=== PATIENT | male | born 1970 | race Caucasian/White ===

== ENCOUNTER → 2017-04-04 | Outpatient (CLI) | payer OTHER ==
[2017-04-04 10:47] LABS: CH 31.3; CHCM 34.6; HCT 54.6 % (39.0-53.0); HDW 2.76; HGB 18.5 gm/dL (13.0-17.5); MCH 30.8 pg (25.0-35.0); MCHC 33.8 g/dL (31.0-37.0); RDW 13.2 % (11.5-15.5); WBC 5.5 k/uL (3.8-10.6)
[2017-04-04 12:30] LABS: ALT 40 U/L (21-72); AST 28 U/L (17-59); Anion Gap 8 mmol/L; Blood Urea Nitrogen 24 mg/dL (9-20); Carbon Dioxide 24 mmol/L (22-30); Chloride 106 mmol/L (98-107); Cholesterol 200 mg/dL (<200); HDL Cholesterol 57 mg/dL (40-60); Non-African American GFR(MDRD) >60 (>60 ml/min/1.73 sqM); Potassium 4.4 mmol/L (3.5-5.1); Sodium 138 mmol/L (137-145); Triglycerides 73 mg/dL (<150)
== END | disposition home or self-care (01) ==
LOC: LABWHC1 09:58
PROVIDERS: ATTEND Internal Medicine Cardiovascular Disease
DX: E78.2 Mixed hyperlipidemia (principal)
CPT/HCPCS: 36415; 80051; 80061; 82565; 84450; 84460; 84520; 85027

== ENCOUNTER → 2019-04-10 | Outpatient (CLI) | payer OTHER ==
[2019-04-10 11:09] LABS: Basophils # (A) 0.1 k/uL (0-0.2); Basophils % (A) 1 %; Eosinophils # (A) 0.2 k/uL (0-0.7); Eosinophils % (A) 2 %; HGB 17.5 gm/dL (13.0-17.5); Lymphocytes # (A) 2.3 k/uL (1.0-4.8); Lymphocytes % (A) 34 %; MCH 29.3 pg (25.0-35.0); MCHC 33.6 g/dL (31.0-37.0); MCV 87.3 fL (80.0-100.0); Mean Platelet Volume 8.4; Monocytes # (A) 0.4 k/uL (0-1.0); Monocytes % (A) 6 %; Neutrophils # (A) 3.6 k/uL (1.3-7.7); Neutrophils % (A) 55 %; Platelet Count 173 k/uL (150-450); RBC 5.96 m/uL (4.30-5.90); RDW 14.2 % (11.5-15.5); WBC 6.6 k/uL (3.8-10.6)
[2019-04-10 16:30] LABS: ALT 44 U/L (10-49); AST 29 U/L (14-35)
== END | disposition home or self-care (01) ==
LOC: LABWHC1 10:20
PROVIDERS: ATTEND Urology
DX: L60.9 Nail disorder, unspecified (principal); D17.0 Benign lipomatous neoplasm of skin and subcutaneous tissue of head, face and neck; L91.8 Other hypertrophic disorders of the skin; L53.8 Other specified erythematous conditions; H53.40 Unspecified visual field defects; N20.0 Calculus of kidney
CPT/HCPCS: 36415; 84153; 84450; 84460; 85025

== ENCOUNTER 2020-12-22 10:00 | Day surgery (SDC) | payer OTHER ==
[2020-12-20 15:31] VITALS: BMI 42.8
[~2020-12-22 10:00] MED LIST: LACTATED RINGERS 1,000 ML IV SCH
[2020-12-22 10:41] VITALS: TEMP 98.2
[2020-12-22] MEDS ORDERED: LIDOCAINE 1% (10MG/ML) FOR IV START INTRADERMA ONE (10:50)
[2020-12-22] MEDS ORDERED: PROPOFOL 10 MG/ML 20 ML VIAL IV ONE (11:44)
--- NOTE | 2020-12-22 11:57 | P.PCN ---
Date of Procedure: 12/22/20 Procedure(s) Performed: BRIEF HISTORY: Patient is a 50-year-old pleasant male scheduled for an elective colonoscopy as a part of screening for colorectal neoplasia. PROCEDURE PERFORMED: Colonoscopy snare polypectomy. PREOPERATIVE DIAGNOSIS: Screening for colon cancer. IV sedation per Anesthesia. PROCEDURE: After informed consent was obtained, the patient, was brought into the endoscopy unit. IV sedation was administered by Anesthesia under continuous monitoring. Digital rectal examination was normal. Initially the Olympus CF-160 flexible video colonoscope was then inserted in the rectum, gradually advanced into the cecum without any difficulty. Careful examination was performed as the scope was gradually being withdrawn. Ileocecal valve and the appendiceal orifice were visualized and appeared normal. Prep was excellent. Mucosa of the cecum, ascending colon, appeared normal. In the hepatic flexure there was a 7 mm sessile polyp removed by snare polypectomy. In the transverse colon there was a 1 cm polyp removed by snare polypectomy. Rest of the transverse colon, descending colon, sigmoid colon, and rectum appeared normal. Retroflexion was performed in the rectum and no lesions were seen. The patient tolerated the procedure well. IMPRESSION: 7 mm hepatic flexure polyp status post polypectomy 1 cm transverse colon polyp status post polypectomy RECOMMENDATIONS: Findings of this examination were discussed with the patient as well as his family. He was advised to follow with the biopsy results. If the biopsy shows an adenoma he can have a repeat colonoscopy in 3 years.
[2020-12-22 12:16] VITALS: BP 119/79; PULSE 58; RESP 18
== END 2020-12-22 12:35 | disposition home or self-care (01) ==
LOC: ORWHC2ENDO 10:00
PROVIDERS: ATTEND Internal Medicine Gastroenterology
DX: Z12.11 Encounter for screening for malignant neoplasm of colon (principal); K63.5 Polyp of colon; I10 Essential (primary) hypertension; G47.33 Obstructive sleep apnea (adult) (pediatric); Z87.442 Personal history of urinary calculi; Z79.899 Other long term (current) drug therapy
CPT/HCPCS: 88305; 45385; J2704

== ENCOUNTER 2021-11-09 05:02 | Emergency (ER) | payer OTHER ==
[2021-11-09 05:08] VITALS: BP 172/81; PULSE 99; RESP 18; TEMP 99.4
[2021-11-09] MEDS ORDERED: SULFAMETHOX-TMP 800-160MG 1 EACH TAB PO STA ×2 (05:25→05:35)
[2021-11-09] MEDS ORDERED: CEPHALEXIN 500 MG CAP PO STA (05:25)
--- NOTE | 2021-11-09 05:27 | ED ---
Skin/Abscess/FB HPI - General Chief complaint: Skin/Abscess/Foreign Body Stated complaint: Right ankle swelling Time Seen by Provider: 11/09/21 05:10 Source: patient, RN notes reviewed, old records reviewed Mode of arrival: ambulatory Limitations: no limitations - History of Present Illness Initial comments: This is a 51-year-old male to the ER for evaluation patient since today for evaluation and right ankle pain swelling and redness significant oneness and swelling of the right lower extremity swelling up the leg. Patient admits to fevers and chills. No other complaints no prior history of same MD complaint: rash, discoloration -: hour(s) Location: generalized, RLE, R foot Severity: moderate Severity scale (1-10): 5 Quality: aching Consistency: constant Improves with: none Worsens with: none Associated symptoms: fever, chills Treatments Prior to Arrival: none - Related Data Home Medications Medication Instructions Recorded Confirmed Metoprolol Succinate (ER) [Toprol 50 mg PO DAILY 12/20/20 12/20/20 Xl] lisinopriL 20 mg PO DAILY 12/20/20 12/22/20 Previous Rx's Medication Instructions Recorded Cephalexin [Keflex] 500 mg PO Q6HR #40 cap 11/09/21 Sulfamethox-Tmp 800-160Mg [Bactrim 2 tab PO BID #40 tab 11/09/21 DS 800-160 mg] Allergies Allergy/AdvReac Type Severity Reaction Status Date / Time No Known Allergies Allergy Verified 11/09/21 05:08 Review of Systems ROS Statement: Those systems with pertinent positive or pertinent negative responses have been documented in the HPI. ROS Other: All systems not noted in ROS Statement are negative. Past Medical History Past Medical History: Hypertension, Sleep Apnea/CPAP/BIPAP History of Any Multi-Drug Resistant Organisms: None Reported Additional Past Surgical History / Comment(s): hemmoroid laser sx, colonoscopy, kidney stone removed Past Anesthesia/Blood Transfusion Reactions: No Reported Reaction Past Psychological History: No Psychological Hx Reported Smoking Status: Never smoker Past Alcohol Use History: None Reported Past Drug Use History: None Reported - Past Family History Mother Family Medical History: No Reported History General Exam Limitations: no limitations General appearance: alert, in no apparent distress Head exam: Present: atraumatic, normocephalic, normal inspection Eye exam: Present: normal appearance, PERRL, EOMI. Absent: scleral icterus, conjunctival injection, periorbital swelling ENT exam: Present: normal exam, mucous membranes moist Neck exam: Present: normal inspection. Absent: tenderness, meningismus, lymphadenopathy Respiratory exam: Present: normal lung sounds bilaterally. Absent: respiratory distress, wheezes, rales, rhonchi, stridor Cardiovascular Exam: Present: regular rate, normal rhythm, normal heart sounds. Absent: systolic murmur, diastolic murmur, rubs, gallop, clicks GI/Abdominal exam: Present: soft, normal bowel sounds. Absent: distended, tenderness, guarding, rebound, rigid Extremities exam: Present: normal inspection, full ROM, normal capillary refill, other (Medical record is reviewed). Absent: tenderness, pedal edema, joint swelling, calf tenderness Back exam: Present: normal inspection Neurological exam: Present: alert, oriented X3, CN II-XII intact Psychiatric exam: Present: normal affect, normal mood Skin exam: Present: warm, dry, intact, normal color. Absent: rash Course Vital Signs 11/09/21 05:05 Temperature 99.4 F Pulse Rate 99 Respiratory 18 Rate Blood Pressure 172/81 O2 Sat by Pulse 96 Oximetry - Reevaluation(s) Reevaluation #1: 11/09/21 07:15 Attic record is reviewed Reevaluation #2: 11/09/21 07:16 Patient symptoms are improved Reevaluation #3: 11/09/21 07:16 Patient like to do outpatient treatment with antibiotics, will return if symptoms worsen Medical Decision Making - Medical Decision Making 48 female DF for evaluation patient Dese for evaluation of significant right lower extremity edema cellulitis of the ankle and leg. Patient be placed on antibiotic treatment and return if symptoms do not improve Disposition Clinical Impression: Cellulitis of right leg Disposition: HOME SELF-CARE Condition: Good Instructions (If sedation given, give patient instructions): Cellulitis (ED) Prescriptions: Sulfamethox-Tmp 800-160Mg [Bactrim DS 800-160 mg] 2 tab PO BID #40 tab Cephalexin [Keflex] 500 mg PO Q6HR #40 cap Is patient prescribed a controlled substance at d/c from ED?: No Referrals: None,Stated [Primary Care Provider] - 1-2 days
== END 2021-11-09 05:55 | disposition home or self-care (01) ==
LOC: EC 05:02
DX: L03.115 Cellulitis of right lower limb (principal); I10 Essential (primary) hypertension; Z79.899 Other long term (current) drug therapy
CPT/HCPCS: 99283

== ENCOUNTER 2021-11-12 13:10 | Emergency (ER) | payer OTHER ==
[2021-11-12 14:19] VITALS: BP 160/67; PULSE 73; RESP 18; TEMP 98.4
--- NOTE | 2021-11-12 14:57 | ED ---
Recheck HPI - General Chief Complaint: Recheck/Abnormal Lab/Rx Stated Complaint: recheck right leg cellulitis; ER visit 11/09/21 Time Seen by Provider: 11/12/21 14:22 Source: patient, RN notes reviewed Mode of arrival: ambulatory Limitations: physical limitation - History of Present Illness Initial Comments: Patient is a 51-year-old male that presents to the emergency department to reevaluate his right lower leg cellulitis per patient notes he is taking 3 days antibiotics and it has greatly improved thus far. Patient was told to come to the ER by family to get reevaluated. Patient notes that he is able to walk on a pain is significantly decreased if he is noticing improvement. Patient does want to be sick. He denied any other issues or complaints. He was otherwise well-appearing. He denied chest pain shortness of breath headache nausea vomiting diarrhea constipation fever fatigue chills. - Related Data Home Medications Medication Instructions Recorded Confirmed Metoprolol Succinate (ER) [Toprol 50 mg PO DAILY 12/20/20 12/20/20 Xl] lisinopriL 20 mg PO DAILY 12/20/20 12/22/20 Previous Rx's Medication Instructions Recorded Cephalexin [Keflex] 500 mg PO Q6HR #40 cap 11/09/21 Sulfamethox-Tmp 800-160Mg [Bactrim 2 tab PO BID #40 tab 11/09/21 DS 800-160 mg] Allergies Allergy/AdvReac Type Severity Reaction Status Date / Time No Known Allergies Allergy Verified 11/12/21 14:20 Review of Systems ROS Statement: Those systems with pertinent positive or pertinent negative responses have been documented in the HPI. ROS Other: All systems not noted in ROS Statement are negative. Past Medical History Past Medical History: Hypertension, Sleep Apnea/CPAP/BIPAP History of Any Multi-Drug Resistant Organisms: None Reported Additional Past Surgical History / Comment(s): hemmoroid laser sx, colonoscopy, kidney stone removed Past Anesthesia/Blood Transfusion Reactions: No Reported Reaction Past Psychological History: No Psychological Hx Reported Smoking Status: Never smoker Past Alcohol Use History: None Reported Past Drug Use History: None Reported - Past Family History Mother Family Medical History: No Reported History General Exam Limitations: physical limitation General appearance: alert, in no apparent distress Head exam: Present: atraumatic, normocephalic, normal inspection Eye exam: Present: normal appearance, PERRL, EOMI. Absent: scleral icterus, co njunctival injection, periorbital swelling ENT exam: Present: normal exam, mucous membranes moist Neck exam: Present: normal inspection Respiratory exam: Present: normal lung sounds bilaterally. Absent: respiratory distress, wheezes, rales, rhonchi, stridor Cardiovascular Exam: Present: regular rate, normal rhythm, normal heart sounds. Absent: systolic murmur, diastolic murmur, rubs, gallop, clicks GI/Abdominal exam: Present: soft, normal bowel sounds. Absent: distended, tenderness, guarding, rebound, rigid Extremities exam: Present: normal inspection, full ROM, normal capillary refill. Absent: tenderness, pedal edema, joint swelling, calf tenderness Neurological exam: Present: alert, oriented X3 Psychiatric exam: Present: normal affect, normal mood Skin exam: Present: warm, dry, intact, normal color, erythema (Right lower leg consistent with cellulitis, not warm to the touch.). Absent: rash Course Vital Signs 11/12/21 14:12 Temperature 98.4 F Pulse Rate 73 Respiratory 18 Rate Blood Pressure 160/67 O2 Sat by Pulse 96 Oximetry Medical Decision Making - Medical Decision Making 51-year-old male presenting for reevaluation of his right lower leg cellulitis. Right lower leg upon physical exam appears to be doing well, is cortical the touch good pulses. Patient notes he is able to ambulate only after several days of antibiotics and notices improvement. Patient was instructed to continue antibiotics. Patient requesting work note. Case discussed with Dr. Williamson. Disposition Clinical Impression: Cellulitis of right leg Disposition: HOME SELF-CARE Condition: Stable Instructions (If sedation given, give patient instructions): Cellulitis (ED) Additional Instructions: Please return to the Emergency Department if symptoms worsen or any other concerns. Follow-up with primary care 1-2 days. Continue antibiotics until complete. Is patient prescribed a controlled substance at d/c from ED?: No Referrals: None,Stated [Primary Care Provider] - 1-2 days Time of Disposition: 14:57
== END 2021-11-12 15:18 | disposition home or self-care (01) ==
LOC: EC 13:10
DX: L03.115 Cellulitis of right lower limb (principal); I10 Essential (primary) hypertension; Z87.442 Personal history of urinary calculi
CPT/HCPCS: 99283

== ENCOUNTER → 2021-11-16 | Outpatient (CLI) | payer OTHER ==
--- NOTE | 2021-11-16 11:57 | US ---
EXAMINATION TYPE: US venous doppler duplex LE RT DATE OF EXAM: 11/16/2021 11:38 AM COMPARISON: NONE CLINICAL HISTORY: 51-year-old male M79.661 PAIN IN RT LOWER LEG, R60.0 EDEMA. Cellulitis right lower extremity SIDE PERFORMED: Right TECHNIQUE: The lower extremity deep venous system is examined utilizing real time linear array sonog julio with graded compression, doppler sonography and color-flow sonography. FINDINGS: VESSELS IMAGED: Common Femoral Vein Deep Femoral Vein Greater Saphenous Vein * Femoral Vein Popliteal Vein Small Saphenous Vein * Proximal Calf Veins Posterior tibial veins (* superficial vessels) Right Leg: Negative for DVT IMPRESSION: No evidence for DVT within the right lower extremity.
== END | disposition home or self-care (01) ==
LOC: RADUSWWP 11:18
PROVIDERS: ATTEND Dermatology MOHS-Micrographic Surgery
DX: M79.661 Pain in right lower leg (principal); L03.115 Cellulitis of right lower limb; R60.0 Localized edema

== ENCOUNTER 2022-08-31 16:05 | Emergency (ER) | payer OTHER ==
[2022-08-31 16:09] VITALS: RESP 16; TEMP 98.2
--- NOTE | 2022-08-31 17:31 | XR ---
Second digit right hand HISTORY: Pain and swelling 3 views of the second digit of the right hand Bone mineralization, joint spaces and alignment are maintained. There is some spurring at the distal interphalangeal joint consistent with osteoarthritic change, possibly the proximal interphalangeal caryn int. No radiopaque foreign body. IMPRESSION: Osteoarthritis.
[2022-08-31] MEDS ORDERED: CLINDAMYCIN 150 MG/ML 4 ML VIAL IM STA (19:15)
[2022-08-31] MEDS ORDERED: DIPH,PERTUS(ACELL)TETVAC-LF 0.5 ML VIAL IM ONE (19:18)
--- NOTE | 2022-08-31 19:29 | ED ---
Upper Extremity HPI - General Chief Complaint: Extremity Injury, Upper Stated Complaint: R hand finger pain Time Seen by Provider: 08/31/22 19:04 Source: patient, RN notes reviewed Mode of arrival: ambulatory Limitations: no limitations - History of Present Illness Initial Comments: This is a pleasant, [id number] 52-year-old male who presents to the emergency department complaining of soreness and redness to his right index finger. 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 Patient has no history of immunosuppression or diabetes last tetanus is unknown No headache, no fever or chills, no changes in vision or hearing, no sore throat or difficulty with speech, no neck pain, no chest pain or shortness of breath, no abdominal pain, no nausea or vomiting, no changes in urination or bowel movements, no numbness or tingling,, no skin rashes or lesions. Past medical, surgical, social, and family history reviewed. MD Complaint: Injury to:: right, finger (Index finger) Onset/Timin -: days(s) - Related Data Home Medications Medication Instructions Recorded Confirmed Metoprolol Succinate (ER) [Toprol 50 mg PO DAILY 12/20/20 12/20/20 Xl] lisinopriL 20 mg PO DAILY 12/20/20 12/22/20 Previous Rx's Medication Instructions Recorded Cephalexin [Keflex] 500 mg PO Q6HR #40 cap 11/09/21 Sulfamethox-Tmp 800-160Mg [Bactrim 2 tab PO BID #40 tab 11/09/21 DS 800-160 mg] Clindamycin [Cleocin] 450 mg PO Q8H #90 capsule 08/31/22 Allergies Allergy/AdvReac Type Severity Reaction Status Date / Time No Known Allergies Allergy Verified 11/12/21 14:20 Review of Systems ROS Statement: Those systems with pertinent positive or pertinent negative responses have been documented in the HPI. ROS Other: All systems not noted in ROS Statement are negative. Past Medical History Past Medical History: Hypertension, Sleep Apnea/CPAP/BIPAP History of Any Multi-Drug Resistant Organisms: None Reported Additional Past Surgical History / Comment(s): hemmoroid laser sx, colonoscopy, kidney stone removed Past Anesthesia/Blood Transfusion Reactions: No Reported Reaction Past Psychological History: No Psychological Hx Reported Smoking Status: Never smoker Past Alcohol Use History: None Reported Past Drug Use History: None Reported - Past Family History Mother Family Medical History: No Reported History General Exam - General Exam Comments Initial Comments: Patient does not appear to be ill or toxic., Patient essentially no distress. Limitations: no limitations General appearance: alert, in no apparent distress Head exam: Present: atraumatic, normocephalic, normal inspection Eye exam: Present: normal appearance, EOMI ENT exam: Present: normal exam Neck exam: Present: normal inspection, full ROM. Absent: tenderness, meningismus, lymphadenopathy Respiratory exam: Present: normal lung sounds bilaterally. Absent: respiratory distress Cardiovascular Exam: Present: regular rate, normal rhythm, normal heart sounds. Absent: systolic murmur GI/Abdominal exam: Present: soft. Absent: tenderness Right Elbow exam: Present: normal inspection, full ROM. Absent: tenderness Forearm Wrist exam: Present: normal inspection, full ROM. Absent: tenderness Hand Wrist exam: Present: full ROM, tenderness, swelling, erythema, other (Patient has erythema and swelling to the right index finger. This progresses up to the second MCP joint area. There is no tenderness along the flexor tendon proximally. Patient is able to fully extend the finger both actively and passively. Flexion of the finger does cause some discomfort. ). Absent: melia l inspection (No definitive's break in skin integrity over the patient has several superficial abrasions and calluses.), abrasion, laceration, ecchymosis, deformity, crepitus, dislocation, amputation, nail avulsion, subungual hematoma Neuro motor exam: Present: wrist extension intact, thumb opposition intact, thumb IP flexion intact, thumb adduction intact, fingers 2-5 abduction intact Neurosensory exam: Present: 2-point discrimination, radial nerve intact, ulnar nerve intact, median nerve intact Vascular: Absent: vascular compromise, Pallo, pulse deficit radial art, pulse deficit ulnar art Back exam: Present: normal inspection Neurological exam: Present: alert, oriented X3, CN II-XII intact, normal gait. Absent: motor sensory deficit Course Vital Signs 08/31/22 16:06 Temperature 98.2 F Pulse Rate 86 Respiratory 16 Rate Blood Pressure 206/94 O2 Sat by Pulse 96 Oximetry Procedures - Orthopedic Splinting/Casting Injury #1 Side: right Upper Extremity Injury Location: finger Upper Extremity Immobilizer: finger (other) (Distal neurovascular status both pre-and post-application was normal. I applied this finger split myself. Carlos taping advice.) Medical Decision Making - Medical Decision Making patient really has no clinical signs of flexor tenosynovitis. Patient presents with symptoms consistent with cellulitis right index finger. Likely due to a minor break in skin integrity from recent as the patient was doing some house demolition. X-rays did not show any acute findings. Patient able to fully extend the finger both actively and passively. Negative Kanavel's signs. I did warn the patient about possible early flexor tenosynovitis. Finger splint was applied. Patient was placed on clindamycin 450 mg 3 times a day. Was given 600 mg IM here prior to discharge. Tetanus was updated. I'm going to have the patient call the [facility] tomorrow at 8 AM to schedule follow-up on a short-term basis. Patient was also educated on his elevated blood pressure today. Patient is treated for hypertension at home. Patient told to follow-up with his regular physician regarding this. Patient was told to return to the ER for any signs or symptoms worsen. Told to return immediately if any other problems arise. All questions answered. Treatment plan discussed. Patient in agreement Every effort has been made to ensure accuracy of this dictation. However, due to the limitations of electronic medical records and dictation devices, errors in charting still occur. Supervising physician, Dr. Kang - Radiology Data Radiology results: report reviewed, image reviewed Disposition Clinical Impression: Cellulitis of right index finger, Hypertension, poor control Disposition: HOME SELF-CARE Condition: Good Instructions (If sedation given, give patient instructions): Cellulitis (ED), Hypertension (ED) Additional Instructions: Elevate the right hand as much as possible. Take the antibiotics as directed. Apply warm compresses for 10-15 minutes at a time 45 times daily. When as directed. Call at 8 AM tomorrow morning appointment with the hand specialist at [facility]. Wear the finger splint as directed Return to the ER immediately if any symptoms worsen, new symptoms arise, or any other problems develop. Make sure he follow-up with your regular physician regarding blood pressure control as it was elevated today. Prescriptions: Clindamycin [Cleocin] 450 mg PO Q8H #90 capsule Is patient prescribed a controlled substance at d/c from ED?: No Referrals: Odalys Chino DO [Doctor of Osteopathic Medicine] - 08/31/22 8:00 am Time of Disposition: 19:21
[2022-08-31 20:04] VITALS: BP 190/88; PULSE 77
== END 2022-08-31 20:04 | disposition home or self-care (01) ==
LOC: EC 16:05
DX: L03.011 Cellulitis of right finger (principal); I10 Essential (primary) hypertension; Z99.89 Dependence on other enabling machines and devices; Z23 Encounter for immunization; Z79.899 Other long term (current) drug therapy
CPT/HCPCS: 90471; 90715; 99283